=== PATIENT | male | born 1990 | race African-American/Black ===

== ENCOUNTER 2020-11-08 12:31 | Emergency (ER) | payer MEDICAID ==
[~2020-11-08] VITALS: Ht 188 cm; Wt 78.0 kg
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
[2020-11-08 13:00] VITALS: BP 136/85
[2020-11-08] MEDS ORDERED: Cyclobenzaprine 10mg Tab ORAL ONE (13:00)
[2020-11-08] MEDS ORDERED: IBUPROFEN600 M1 ORAL (13:26)
[2020-11-08] MEDS ORDERED: HYDROCODON-ACE1 EA15 ORAL (13:26)
[2020-11-08] MEDS ORDERED: Fluorescein Strips LEFT EYE ONE (13:30)
--- NOTE | 2020-11-08 13:30 | Diagnostic Imaging Report ---
EXAM: X-RAY XRAY Elbow Min 3v R CLINICAL HISTORY: Trauma with elbow pain. COMPARISON: None FINDINGS: Total of 4 views of the right elbow were obtained. Alignment is anatomic. There is no fracture, bony lesions or erosions. Joint spaces are unremarkable. Surrounding soft tissue is normal. IMPRESSION: NO FRACTURE.
--- NOTE | 2020-11-08 13:39 | NUR ---
ED Nurse Note: right elbow splinted per MD order
[2020-11-08 13:50] VITALS: BP 128/81
--- NOTE | 2020-11-08 13:50 | NUR ---
ED Nurse Note: Pt's arm placed in sling. Pt cleared by health care Provider for discharge. DC instructions/prescription was given and explained to pt and verbalized understanding of teachings. All medical deviecs such as ID band removed. Pt is AAO x4, ambulatory and left with all personal belongings.
[2020-11-09] MEDS ORDERED: IBUPROFEN600 M1 ORAL ×2 (18:51)
[2020-11-09] MEDS ORDERED: HYDROCODON-ACE1 EA15 ORAL ×2 (18:51)
== END 2020-11-08 13:50 | disposition home or self-care (01) ==
LOC: EMR 13:05
DX: S42.401A Unspecified fracture of lower end of right humerus, initial encounter for closed fracture (principal); W19.XXXA Unspecified fall, initial encounter; Y92.9 Unspecified place or not applicable
CPT/HCPCS: 29105; 73080; Z7502; 99283